=== PATIENT | male | born 1970 | race Caucasian/White ===

== ENCOUNTER 2024-11-05 10:26 | Emergency (ER) | payer BC ==
[2024-11-05] MEDS ORDERED: Famotidine 20 MG TAB ONE (10:48)
[2024-11-05] MEDS ORDERED: predniSONE 20 MG TAB ONE (10:48)
== END 2024-11-05 11:10 | disposition home or self-care (01) ==
LOC: MADERS 10:26
DX: L50.9 Urticaria, unspecified (principal); T78.40XA Allergy, unspecified, initial encounter
CPT/HCPCS: 99283; J7512